=== PATIENT | female | born 1980 | race Caucasian/White ===

== ENCOUNTER 2021-09-18 09:31 | Emergency (ER) | payer SELFPAY ==
[~2021-09-18] VITALS: Ht 157.5 cm; Wt 62.6 kg
[2021-09-18] MEDS ORDERED: IV NORMAL SALINE 1000ML BAG 1,000 ML IV ONE (10:00)
[2021-09-18] MEDS ORDERED: ONDANSETRON PF 4 MG/2 ML VIAL. IVP ONE (10:00)
[2021-09-18] MEDS ORDERED: MORPHINE SULFATE 4 MG/ML INJ. IVP ONE ×2 (10:15→11:15)
[2021-09-18 10:22] LABS: BASO % 1 % (0-3); EOS # 0.2 x10^3/uL (0.0-0.7); EOS % 4 % (0-3); HEMATOCRIT 35.9 % (36.0-47.0); HEMOGLOBIN 12.7 g/dL (12.0-15.5); LYMPH # 1.8 x10^3/uL (1.0-4.8); LYMPH % 33 % (24-48); MEAN CORPUSCULAR HEMOGLOBIN 33 pg (25-35); MEAN CORPUSCULAR HGB CONC 35 g/dL (31-37); MEAN CORPUSCULAR VOLUME 92 fL (79-100); MONO # 0.4 x10^3/uL (0.0-1.1); MONO % 7 % (0-9); NEUT # 3.1 x10^3/uL (1.8-7.7); NEUT % 56 % (31-73); PLATELET COUNT 306 x10^3/uL (140-400); RED BLOOD COUNT 3.89 x10^6/uL (3.50-5.40); RED CELL DISTRIBUTION WIDTH 13.9 % (11.5-14.5); WHITE BLOOD COUNT 5.5 x10^3/uL (4.0-11.0)
[2021-09-18] MEDS ORDERED: IOHEXOL 300 MG/ML 100ML VIAL. IV ONE (10:30)
[2021-09-18 10:32] LABS: BILIRUBIN,URINE NEGATIVE (NEG); CLARITY,URINE CLEAR; COLOR,URINE YELLOW; NITRITE,URINE POSITIVE (NEG); PH,URINE 6.5 (<5.0-8.0); PROTEIN,URINE NEGATIVE (NEG-TRACE); UROBILINOGEN,URINE 0.2 mg/dL (0.2 mg/dL)
[2021-09-18 10:35] LABS: CALCIUM 8.9 mg/dL (8.5-10.1); CREATININE 0.7 mg/dL (0.6-1.0); GFR 92.2; POTASSIUM 3.5 mmol/L (3.5-5.1)
[2021-09-18 10:41] LABS: ALBUMIN 3.9 g/dL (3.4-5.0); ALBUMIN/GLOBULIN RATIO 0.9 (1.0-1.7); TOTAL BILIRUBIN 0.4 mg/dL (0.2-1.0); TOTAL PROTEIN 8.1 g/dL (6.4-8.2)
[2021-09-18 10:57] LABS: BACTERIA,URINE MANY /HPF (0-FEW); RBC,URINE 0 /HPF (0-2)
--- NOTE | 2021-09-18 10:57 | PHYS DOC ---
Past Medical History Additional Past Medical Histor: crohns Past Surgical History: , Tubal ligation, Other Additional Past Surgical Histo: l wr Smoking Status: Never Smoker Alcohol Use: Occasionally General Adult EDM: Chief Complaint: ABDOMINAL PAIN HPI: HPI: Patient is a 40-year-old female presents to the emergency department complaining of right middle abdominal pain for the past 2 days. Patient reports she might be constipated as she is not had a bowel movement for 3 days. Patient reports nausea with several bouts of vomiting today. Patient denies seeing any blood in her vomitus. Patient reports a history of Crohn's disease in which she takes Humira Ativan and Zoloft for. Patient states she is here from [place] for a wedding and was unable to attend the wedding, was in route to the airport to catch her flight home to [facility] today when she decided she needed to be seen in the emergency department. Patient reports her last menstrual cycle was 7 weeks ago, states she has had a tubal ligation and worried she might have a tubal . Patient denies chest pains or shortness of breath. Patient denies other physical complaints or physical concerns. Reports a allergy to penicillin. Patient states she did take 1 g of Tylenol 6 hours ago without relief of symptoms. Patient reports her pain is a 10 out of 10. Patient denies pain or pressure with urination, denies increased urinary frequency, denies STI concerns. Review of Systems: Review of Systems: 14 body systems of review of systems have been reviewed. See HPI for pertinent positives and negative responses, otherwise all other systems are negative, nonpertinent or noncontributory. Constitutional: Negative except as outlined in HPI above. Skin: Negative except as outlined in HPI above. Eyes: Negative except as outlined in HPI above. HENT: Negative except as outlined in HPI above. Respiratory: Negative except as outlined in HPI above. Cardiovascular: Negative except as outlined in HPI above. GI: Negative except as outlined in HPI above. : Negative except as outlined in HPI above. Musculoskeletal: Negative except as outlined in HPI above. Integument: Negative except as outlined in HPI above. Neurologic: Negative except as outlined in HPI above. Endocrine: Negative except as outlined in HPI above. Lymphatic: Negative except as outlined in HPI above. Psychiatric: Negative except as outlined in HPI above. Heart Score: C/O Chest Pain: No Risk Factors: Risk Factors: DM, Current or recent (<one month) smoker, HTN, HLP, family history of CAD, obesity. Risk Scores: Score 0 - 3: 2.5% MACE over next 6 weeks - Discharge Home Score 4 - 6: 20.3% MACE over next 6 weeks - Admit for Clinical Observation Score 7 - 10: 72.7% MACE over next 6 weeks - Early Invasive Strategies Current Medications: Current Medications Medications (Trade) Dose Ordered Sig/Perla Start Time Stop Time Status Last Admin Dose Admin Iohexol (Omnipaque 300 Mg/ml) 75 ml 1X ONCE 09/18/21 10:30 09/18/21 10:31 DC 09/18/21 10:55 75 ML Morphine Sulfate (Morphine Sulfate) 4 mg 1X ONCE 09/18/21 10:15 09/18/21 10:17 DC 09/18/21 10:22 4 MG Ondansetron HCl (Zofran) 4 mg 1X ONCE 09/18/21 10:00 09/18/21 10:14 DC 09/18/21 10:19 4 MG Sodium Chloride 1,000 ml @ 1,000 mls/hr 1X ONCE 09/18/21 10:00 09/18/21 10:59 09/18/21 10:00 1,000 MLS/HR Allergies: Allergies: Allergies Coded Allergies Type Severity Reaction Last Updated Verified NSAIDS (Non-Steroidal Anti-Inflamma Allergy Intermediate 09/18/21 No Penicillins Allergy Intermediate 09/18/21 Yes Physical Exam: PE: Constitutional: Well developed, well nourished, no acute distress, non-toxic appearance. 40-year-old female appears anxious otherwise in no apparent distress. HENT: Normocephalic, atraumatic. Eyes: Conjunctiva normal, no discharge. Neck: Normal range of motion, no stridor. Cardiovascular: No cyanosis appreciated, distal cap refill less than 2 seconds. Lungs & Thorax: Patient is in no respiratory distress, no audible adventitious lung sounds appreciated. Abdomen: Bowel sounds normal all 4 quadrants, tenderness to palpation just right of umbilicus, no McBurney's point tenderness, no Whitten sign, no left sided upper or lower quadrant pain to palpation. No bruising appreciated of the abdomen. Skin: Warm, dry, no erythema, no rash. Back: No tenderness, no deformities. Extremities: No tenderness, no cyanosis, no clubbing, ROM intact, no edema. Neurologic: Alert and oriented X 3, normal motor function, normal sensory function, no focal deficits noted. Psychologic: Affect normal, judgement normal, mood normal. Current Patient Data: Labs: Laboratory Tests Test 09/18/21 09:51 09/18/21 09:53 09/18/21 09:55 Urine Collection Type Void Urine Color Yellow Urine Clarity Clear Urine pH 6.5 (<5.0-8.0) Urine Specific [place] 1.010 (1.000-1.030) Urine Protein Negative mg/dL (NEG-TRACE) Urine Glucose (UA) Negative mg/dL (NEG) Urine Ketones (Stick) Negative mg/dL (NEG) Urine Blood Negative (NEG) Urine Nitrite Positive (NEG) Urine Bilirubin Negative (NEG) Urine Urobilinogen Dipstick 0.2 mg/dL (0.2 mg/dL) Urine Leukocyte Esterase Negative (NEG) Urine RBC 0 /HPF (0-2) Urine WBC 1-4 /HPF (0-4) Urine Squamous Epithelial Cells Few /LPF Urine Bacteria Many /HPF (0-FEW) POC Urine HCG, Qualitative Hcg negative (Negative) White Blood Count 5.5 x10^3/uL (4.0-11.0) Red Blood Count 3.89 x10^6/uL (3.50-5.40) Hemoglobin 12.7 g/dL (12.0-15.5) Hematocrit 35.9 % (36.0-47.0) L Mean Corpuscular Volume 92 fL (79-100) Mean Corpuscular Hemoglobin 33 pg (25-35) Mean Corpuscular Hemoglobin Concent 35 g/dL (31-37) Red Cell Distribution Width 13.9 % (11.5-14.5) Platelet Count 306 x10^3/uL (140-400) Neutrophils (%) (Auto) 56 % (31-73) Lymphocytes (%) (Auto) 33 % (24-48) Monocytes (%) (Auto) 7 % (0-9) Eosinophils (%) (Auto) 4 % (0-3) H Basophils (%) (Auto) 1 % (0-3) Neutrophils # (Auto) 3.1 x10^3/uL (1.8-7.7) Lymphocytes # (Auto) 1.8 x10^3/uL (1.0-4.8) Monocytes # (Auto) 0.4 x10^3/uL (0.0-1.1) Eosinophils # (Auto) 0.2 x10^3/uL (0.0-0.7) Basophils # (Auto) 0.0 x10^3/uL (0.0-0.2) Sodium Level 136 mmol/L (136-145) Potassium Level 3.5 mmol/L (3.5-5.1) Chloride Level 102 mmol/L (98-107) Carbon Dioxide Level 27 mmol/L (21-32) Anion Gap 7 (6-14) Blood Urea Nitrogen 13 mg/dL (7-20) Creatinine 0.7 mg/dL (0.6-1.0) Estimated GFR (Cockcroft-Gault) 92.2 BUN/Creatinine Ratio 19 (6-20) Glucose Level 87 mg/dL (70-99) Calcium Level 8.9 mg/dL (8.5-10.1) Total Bilirubin 0.4 mg/dL (0.2-1.0) Aspartate Amino Transferase (AST) 21 U/L (15-37) Alanine Aminotransferase (ALT) 27 U/L (14-59) Alkaline Phosphatase 119 U/L (46-116) H Total Protein 8.1 g/dL (6.4-8.2) Albumin 3.9 g/dL (3.4-5.0) Albumin/Globulin Ratio 0.9 (1.0-1.7) L Lipase 72 U/L (73-393) L Laboratory Tests 09/18/21 09:55 Laboratory Tests 09/18/21 09:55 Vital Signs: Vital Signs Date Time Temp Pulse Resp B/P (MAP) Pulse Ox O2 Delivery O2 Flow Rate FiO2 09/18/21 10:22 16 95 Room Air 09/18/21 09:34 98.2 92 120/73 (89) 98.2 EKG: EKG: [] Radiology/Procedures: Radiology/Procedures: PATIENT: MARION CHRISTINA ACCOUNT: [id number] : 1980 LOCATION: ER AGE: 40 SEX: F EXAM STATUS: REG ER ORD. PHYSICIAN: AIXA ARCINIEGA APRN REASON: Severe right-sided abdominal pain PROCEDURE: CT ABD PELV W/ IV CONTRST ONLY EXAMINATION: CT abdomen and pelvis with IV contrast. INDICATION:40 years, Female, severe right-sided abdominal pain. TECHNIQUE: Axial CT images of the abdomen and pelvis were obtained. Coronal and sagittal reformatted performed. COMPARISON: None. Exposure: One or more of the following individualized dose reduction techniques were utilized for this examination: 1. Automated exposure control 2. Adjustment of the mA and/or kV according to patient size 3. Use of iterative reconstruction technique. FINDINGS: LOWER CHEST: Small bilateral pleural effusions. Bibasilar subsegmental atelectasis. ABDOMEN/PELVIS: Mild intra and extrahepatic biliary ductal dilation with abrupt narrowing distally adjacent to the ampulla. The maximum diameter of the common bile duct measures up to 7 mm. Gallbladder is unremarkable. No suspicious focal hepatic lesion. Spleen and pancreas are unremarkable. No adrenal nodule. No hydronephrosis or nephrolithiasis in either kidney. Small hiatal hernia. No bowel obstruction or wall thickening. Normal appendix. Moderate amount of stool throughout the colon. Normal caliber abdominal aorta. Mesenteric arteries and portal vein are patent. No pneumoperitoneum or ascites. Underdistended urinary bladder which limits evaluation. Unremarkable uterus. No suspicious pelvic masses. MUSCULOSKELETAL STRUCTURES: No acute osseous process. IMPRESSION: 1. Mild intra and extrahepatic biliary ductal dilation with abrupt narrowing of the distal common bile duct adjacent to the ampulla. Findings Correlate with lab values and consider MRCP for further evaluation to exclude noncalcified obstructing choledocholithiasis. 2. Small bilateral pleural effusions with bibasilar subsegmental atelectasis. 3. Moderate amount of stool throughout the colon. Correlate for constipation. Electronically signed by: Adriana Owens MD (09/18/2021 11:13 AM) [id number] Course & Med Decision Making: Course & Med Decision Making Pertinent Labs and Imaging studies reviewed. (See chart for details) 40-year-old female, vital signs reviewed, resents emerged from concerning abdominal pain for the past 3 days. Physical examination most likely constipation however will order urinalysis assay, CBC, CMP, 1 L normal saline, IV saline lock, Zofran for nausea, morphine for pain, CT abdomen pelvis with IV contrast. 1115, labs pending, CT report pending, patient states she wants to leave AGAINST MEDICAL ADVICE, states she needs to leave immediately to catch her flight back home to [place]. The patient has decided to leave our facility against medical advice. I have assessed patient's ability to make informed decision and feel the patient has the capacity to comprehend information regarding the current medical condition and appreciates the impact of the disease or condition and the consequences of various options for treatment, including foregoing treatment. The patient possesses the ability to evaluate all treatment options, comparing the risks and benefits of each option, communicate his or her choice in a consistent manner over time, and is able to make rational choices. I explained to the patient f urther testing, treatment, and evaluation I would like to perform in the emergency department visit as well as any possible alternatives that can be accomplished in a timely manner. I have outlined the possible risks of foregoing any or all of these interventions and the patient understands and ack nowledges that the decision to leave may result in undesirable consequences such as , permanent disability, and/or loss of current lifestyle. Even though leaving AMA is not ideal, I have instructed the patient to follow any discharge instructions given, take any medications prescribed, and resume care as soon as possible with another provider. This conversation was witnessed by another membe r of the emergency department staff and we clearly communicated the patient is welcome to return anytime to continue care at our facility. CT report concerning for possible choledocho obstruction, constipation, the patient's urine is abnormal likely urinary tract infection, labs and CT were resulted after patient left AGAINST MEDICAL ADVICE, attempted to contact patient through phone number left with admitting clerks, telephone number is not working. Caterina Disclaimer: Caterina Disclaimer: This electronic medical record was generated, in whole or in part, using a voice recognition dictation system. Departure Departure Impression: Primary Impression: Abdominal pain Qualified Codes: R10.9 - Unspecified abdominal pain Additional Impression: Left against medical advice Disposition: LEFT AGAINST MEDICAL ADVICE Condition: STABLE Referrals: UNKNOWN PCP NAME (PCP) Additional Instructions: You were seen today in the emergency department for abdominal pain, your emergency department evaluation has not been completed, however you have stated that you need to leave immediately. You are leaving AGAINST MEDICAL ADVICE. Please return to the emergency department for worsening symptoms or other concerns. Patient does not wish to proceed with medical care recommended by MICA Arciniega NP-C. Patient given information related to possible complications, up to and including , which could occur as a result of leaving the hospital at this time. Patient verbalizes understanding of risks involved due to leaving against medical advice. Patient has signed AMA form. AIXA ARCINIEGA APRN Sep 18, 2021 10:57
[2021-09-18 11:05] VITALS: BP 118/78
--- NOTE | 2021-09-18 11:16 | RAD ---
EXAMINATION: CT abdomen and pelvis with IV contrast. INDICATION:40 years, Female, severe right-sided abdominal pain. TECHNIQUE: Axial CT images of the abdomen and pelvis were obtained. Coronal and sagittal reformatted performed. COMPARISON: None. Exposure: One or more of the following individualized dose reduction techniques were utilized for thi s examination: 1. Automated exposure control 2. Adjustment of the mA and/or kV according to patient size 3. Use of iterative reconstruction technique. FINDINGS: LOWER CHEST: Small bilateral pleural effusions. Bibasilar subsegmental atelectasis. ABDOMEN/PELVIS: Mild intra and extrahepatic biliary ductal dilation with abrupt narrowing distally adjacent to the am doug. The maximum diameter of the common bile duct measures up to 7 mm. Gallbladder is unremarkable. No suspicious focal hepatic lesion. Spleen and pancreas are unremarkable. No adrenal nodule. No hydr onephrosis or nephrolithiasis in either kidney. Small hiatal hernia. No bowel obstruction or wall thickening. Normal appendix. Moderate amount of sto ol throughout the colon. Normal caliber abdominal aorta. Mesenteric arteries and portal vein are mcghee nt. No pneumoperitoneum or ascites. Underdistended urinary bladder which limits evaluation. Unremarka ble uterus. No suspicious pelvic masses. MUSCULOSKELETAL STRUCTURES: No acute osseous process. IMPRESSION: 1. Mild intra and extrahepatic biliary ductal dilation with abrupt narrowing of the distal common bi le duct adjacent to the ampulla. Findings Correlate with lab values and consider MRCP for further eve luation to exclude noncalcified obstructing choledocholithiasis. 2. Small bilateral pleural effusions with bibasilar subsegmental atelectasis. 3. Moderate amount of stool throughout the colon. Correlate for constipation. Electronically signed by: Adriana Owens MD (09/18/2021 11:13 AM) [place] [id number]
== END 2021-09-18 11:14 | disposition left against medical advice (07) ==
LOC: ER 09:31
DX: R10.33 Periumbilical pain (principal); K50.90 Crohn's disease, unspecified, without complications; Z98.51 Tubal ligation status; Z88.0 Allergy status to penicillin; Z88.6 Allergy status to analgesic agent
CPT/HCPCS: 36415; 74177; 80053; 81001; 81025; 83690; 85025; 87086; 96361; 96374; 96375; 99285; J2270; J2405; J7030; Q9967; 87077; 87186